=== PATIENT | male | born 1980 | race Two or more races ===

== ENCOUNTER 2024-08-25 12:15 | Day surgery (SDC) | payer OTHER ==
[~2024-08-25] VITALS: Ht 188 cm; Wt 103.8 kg
[2024-08-25] MEDS ORDERED: CeFAZolin Sodium 2,000 MG VIAL ONE (12:58)
[2024-08-25] MEDS ORDERED: Lactated Ringer's 1,000 ML IV ONE ×2 (12:58→13:02)
[2024-08-25] MEDS ORDERED: Lidocaine 1%-Epineph 1:100000 20 ML MDV ONE (13:00)
[2024-08-25] MEDS ORDERED: Ondansetron HCl 2 MG / ML 2ML Vial ONE (13:30)
[2024-08-25] MEDS ORDERED: propofoL 40 ML IV ONE (13:30)
[2024-08-25] MEDS ORDERED: Dexamethasone Sod Phos 10 MG/ML 1ML VIAL ONE (13:30)
[2024-08-25] MEDS ORDERED: Ketorolac Tromethamine 30mg Vial ONE (13:30)
[2024-08-25] MEDS ORDERED: Midazolam HCl 1MG / ML 2ML Vial ONE (13:41)
== END 2024-08-25 15:19 | disposition home or self-care (01) ==
LOC: ORSCSDS 12:15
PROVIDERS: Orthopaedic Surgery
PROC: 0JBK0ZZ Excision of Left Hand Subcutaneous Tissue and Fascia, Open Approach (ICD-10-PCS; principal; 2024-08-25 14:20)
DX: R22.32 Localized swelling, mass and lump, left upper limb (principal); F17.210 Nicotine dependence, cigarettes, uncomplicated
CPT/HCPCS: J0690; J1100; J1885; J2250; J2405; J2704; J7120